=== PATIENT | male | born 1945 | race Caucasian/White ===

== ENCOUNTER → 2016-06-10 | Outpatient (CLI) | payer BC ==
[~2016-06-10] MED LIST: ALL300 PO; ASPI1TAB83 PO; CHOL1CAP57 PO; CYAN50TA2 PO; GLC/500 PO; LEVO75TA5 PO; LISI-461 PO; LOPELIQ6; MULT-610 PO; POTA540T PO; SILD50TA PO; SIMV20TA2 PO; [UNRECOGNIZED DRUG - OTHER] PO
[2016-06-10 12:47] LABS: ALT/SGPT 63 U/L (12-78); AST/SGOT 38 U/L (15-37); BLOOD UREA NITROGEN 25 mg/dl (7-18); BUN/CREATININE RATIO 22.6 (10-20); CARBON DIOXIDE 27 mmol/L (21-32); CHLORIDE 107 mmol/L (98-107); CHOLESTEROL 104 mg/dl (0-200); GLUCOSE 125 mg/dl (70-99); POTASSIUM 4.1 mmol/L (3.5-5.1); SODIUM 141 mmol/L (136-145)
[2016-06-10 12:50] LABS: ALB/GLOB RATIO 1.3 (0.9-2); ALKALINE PHOSPHATASE 57 U/L (45-117); HDL CHOLESTEROL 51 mg/dl; LDL CHOLESTEROL CALCULATED 24 mg/dl; TRIGLYCERIDES 143 mg/dl (0-150); VERY LOW DENSITY LIPOPROT CALC 29 mg/dl
[2016-06-10 13:03] LABS: CALCIUM 9.3 mg/dl (8.5-10.1); ESTIMATED AVERAGE GLUCOSE 154 mg/dl; HA1C FLAG Normal (Normal)
== END | disposition home or self-care (01) ==
LOC: C.LABBFT 08:14
PROVIDERS: ATTEND Internal Medicine
DX: E11.9 Type 2 diabetes mellitus without complications (principal); E78.00 Pure hypercholesterolemia, unspecified

== ENCOUNTER → 2016-07-08 | Outpatient (CLI) | payer BC ==
--- NOTE | 2016-07-08 08:23 | DIAGNOSTIC IMAGING REPORT ---
KUB CLINICAL HISTORY: N20.0 [id number] COMPARISON STUDY: 07/26/2015 FINDINGS: Unchanging right renal nephrocalcinosis. No significant left renal calcification. Bowel pattern is nonobstructive. IMPRESSION: Stable right renal nephrocalcinosis. No new or interval finding. Electronically signed by: Kraig Dobbins M.D. 07/08/2016 8:22 AM Dictated Date/Time: 07/08/2016 8:21 AM
== END | disposition home or self-care (01) ==
LOC: C.RAD 07:56
PROVIDERS: ATTEND Urology
DX: E83.59 Other disorders of calcium metabolism (principal); N29 Other disorders of kidney and ureter in diseases classified elsewhere; N40.1 Benign prostatic hyperplasia with lower urinary tract symptoms

== ENCOUNTER 2023-06-02 18:28 | Inpatient (IN) ==
--- NOTE | 2023-06-02 19:37 | Emergency Department Note ---
Impression & Plan Acute hyperkalemia, JOAQUÍN (acute kidney injury), Weakness, Metabolic acidosis ED Provider Note NAME: DARSHANA LIN AGE: 78 SEX: M : 1945 ARRIVES VIA: Walk-In INFORMANT: Patient ED PROVIDER(S): Clark Liu DO CHIEF COMPLAINT: hyperkalemia HPI: Patient is a 78-year-old male who presents to the ER with a past medical history of Alzheimer's, BPH, hyperlipidemia, hypertension and hypothyroidism for not feeling well for the past 2 to 3 days. He notes has been following a fair amount of tennis/pickleball. He feels very weak and rundown. He denies any headache or change in vision. No chest pain or shortness of breath. No nausea, vomiting, or diarrhea. No dysuria, urgency, or frequency. He has been eating less than usual. No urinary complaints. He had blood work done by his PCP and was referred in. ADDITIONAL HISTORY OBTAINED: Per HPI Chronic Medical/Social Conditions Affecting Care: Per HPI PAST MEDICAL HISTORY:See Below PAST SURGICAL HISTORY:See Below FAMILY HISTORY:See Below SOCIAL HISTORY:See Below HOME MEDICATIONS:See Below ALLERGIES:See Below VITALS:See Below PHYSICAL EXAMINATION: GENERAL: Sitting up in bed, alert, well appearing, well nourished, no distress, non-toxic EYE EXAM: normal conjunctiva. OROPHARYNX:mucous membranes are moist LUNGS: Clear to auscultation. Normal chest wall mechanics HEART: no murmurs, S1 normal and S2 normal ABDOMEN: abdomen soft, non-tender, normo-active bowel sounds, no masses, no rebound or guarding. UPPER EXTREMITIES: upper extremities are grossly normal. LOWER EXTREMITIES: No pitting edema. NEURO EXAM: Normal sensorium, cranial nerves II-XII grossly intact, normal speech, no gross weakness of arms, no gross weakness of legs. MEDICAL DECISION MAKING: Patient is a 78-year-old male who presents ER for above-stated complaint. IV was established blood work was obtained. Labs show leukocytosis of 13,000. No significant anemia. BMP with a creatinine 2.3 up from baseline of 1 with metabolic acidosis and a CO2 of 18. Potassium was elevated at 6.6. BUN was elevated at 79 likely secondary to the JOAQUÍN. CK mildly elevated at 300. UA with ketones. Patient was given IV fluids, insulin, glucose, IV calcium gluconate and bicarb for the hyperkalemia. Discussed the case with the hospitalist patient was admitted for the renal failure in combination with the hyperkalemia. Patient family expressed understanding. Discussed case with the hospitalist for further evaluation management treatment. Consults/Care Managements Discussions: Per [facility] Triage Nursing notes reviewed. Limited review of prior medical records performed Vital Signs: reviewed and remarkable for no significant abnormalities Differential diagnosis: Infection, dehydration, metabolic abnormality, hypo/hyperglycemia, electrolyte disturbance, anemia, hypoxia, cardiac sources, intracerebral event, toxicologic, neurologic, as well as other pathologies. ER treatment provided: See below Diagnostics interpreted by me include EKG and cardiac monitoring as listed below: -Cardiac Monitoring: An order was placed for continuous cardiac monitoring. The monitor shows a rate of 70 with sinus rhythm. -ECG: Sinus rhythm rate of 68 Normal axis No PVCs QTc 374 -Laboratory studies:Interpreted by me as stated above in MDM and shown below. Imaging studies: Xrays: As interpreted by me:none CTs show: none Procedures:none Critical Care: I have personally spent 35 minutes of critical care time in the direct management of this patient. This includes bedside care, interpretation of diagnostic studies, and testing, discussion with consultants, patient, and family members, and other required patient management activities. This 35 minutes is in excess of all separately billable procedures. Past Med/Surg History Medical History Degenerative disc disease Depression Diverticulitis DM type 2 (diabetes mellitus, type 2) Gout History of nephrolithiasis History of sleep apnea Hyperlipidemia Hypertension Hypothyroidism SDAT (senile dementia of Alzheimer's type) Surgical History History of appendectomy History of colonoscopy History of colostomy reversal History of esophagogastroduodenoscopy (EGD) History of nasal septoplasty History of open reduction and internal fixation (ORIF) procedure History of partial colectomy History of tonsillectomy History of tooth extraction Hx of left cataract extraction Family History Mother Family history of diabetes mellitus Skin cancer Father Myocardial infarction Denies family history of Ovarian cancer Prostate cancer Breast cancer Colorectal cancer Social History Smoking Status: Never smoker Tobacco Type: Cigars Age Started Using Tobacco: 69; Age Quit Using Tobacco: 74; Cigarettes Per Day: QUIT 09/2021; Second Hand Exposure: No; Do You Dip or Chew Tobacco: No; Hx Alcohol Use: Yes Alcohol type: beer Alcohol Intake Frequency: 2-4 x/Month Hx Substance Use: No Preferred Language: Congolese Communication Ability: Effective Visual Impairment: Limited Hearing Ability: Normal Passenger Agent Required: No Beliefs That Will Affect Care: None marital status: Current Living Situation: Spouse current occupational status: retired 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 Feels Safe at Home: Yes Childhood Exposure to Second-Hand Smoke: No Diet: regular caffeine: Yes during the past year weight has: remained stable Dental Care, Regularly: Yes Physical Activity Frequency: Daily Seatbelt Use: always Sunscreen Use: Yes Assistive Devices: Glasses Allergies Allergies Allergy/AdvReac Type Severity Reaction Status Date / Time lorazepam AdvReac Severe "VIOLENT" Verified 06/02/23 15:35 Home Meds Home Medications Medication Instructions Recorded Confirmed [id number]-[id number] 1 tab PO QAM 05/04/18 06/02/23 tablet loperamide 2 mg capsule (Imodium 2 mg PO BID PRN Diarrhea 05/04/18 06/02/23 A-D) [id number]-[id number] 300 mcg-K 60 1 tab PO QAM 05/04/18 06/02/23 mcg-lycop 600 mcg-lutein 300 mcg tablet (Centrum Silver Men) cholecalciferol (vitamin D3) 50 50 mcg PO QAM 06/12/20 06/02/23 mcg (2,000 unit) capsule apple cider vinegar 600 mg capsule 600 mg PO BID 10/17/20 06/02/23 lansoprazole 15 mg capsule,delayed 15 mg PO QAM 05/20/22 06/02/23 release allopurinol 300 mg tablet 300 mg PO HS 06/02/23 06/02/23 aspirin 81 mg tablet,delayed 81 mg PO HS 06/02/23 06/02/23 release ferrous sulfate 325 mg (65 mg 325 mg PO DAILY 06/02/23 06/02/23 iron) tablet Previous Rx's Medication Instructions Recorded tadalafil 20 mg tablet 20 mg PO DAILY PRN sexual activity 09/01/21 #6 tabs simvastatin 10 mg tablet 10 mg PO HS #90 tabs 05/01/23 dulaglutide 3 mg/0.5 mL 3 mg (0.5 mL) subcut .COMPLEX #6 mL 08/10/22 [facility] levothyroxine 75 mcg tablet 75 mcg PO QAM #90 tabs 08/10/22 potassium citrate 10 mEq (1,080 10 meq PO BID #180 tabs 08/10/22 mg) tablet,extended release donepezil 10 mg tablet 10 mg PO DAILY #90 tabs 09/08/22 blood sugar diagnostic (OneTouch #300 ea 11/06/22 Ultra Test strips) metformin 500 mg tablet,extended 1,000 mg (2 x 500 mg) PO BID #360 01/29/23 release 24 hr tabs lisinopril 10 mg tablet 10 mg PO QAM #90 tabs 04/19/23 Results & Data (ED) Vital Signs Vital Signs - 24 hr 06/02/23 18:31 06/02/23 18:48 06/02/23 20:07 Pulse Rate 85 75 Pulse Rate [Apical] 73 Pulse Rhythm Regular Pulse Rhythm [Apical] Regular Pulse Strength Normal Pulse Strength [Apical] Normal Respiratory Rate 20 16 Respiratory Effort / Characteristics Non-Labored Spontaneous Non-Labored Respiratory Depth Normal Normal Respiratory Pattern Regular Regular Blood Pressure 124/82 Blood Pressure [Right Arm] 111/67 Blood Pressure Mean 96 Blood Pressure Mean [Right Arm] 81 Blood Pressure Position Sitting Blood Pressure Position [Right Arm] Sitting Pulse Oximetry 100 96 Oxygen Delivery Method Room Air Room Air Sepsis Recent Fever Within 48 Hours No Sepsis New/Unexplained Change in Mental Status No Sepsis Action Taken by Nursing No Action Required Laboratory Data 06/02/23 Unknown 06/02/23 Unknown Lab Results 06/02/23 Range/Units 19:22 POC Hgb 14.3 (14.0-18.0) g/dl POC Hct 42 (42-52) % POC Sodium 137 (135-144) mmol/L POC Potassium 6.7 H* (3.3-5.0) mmol/L POC Chloride 108 (101-112) mmol/L POC Total CO2 19 L (24-31) mmol/L POC Anion Gap 17.0 (16-25) mmol/L POC BUN 77 H (7-18) mg/dl POC Creatinine 2.8 H (0.6-1.3) mg/dl POC Glucose (other) 132 H (70-99) mg/dl POC Ioniz Calcium Daljit 1.41 H (1.12-1.32) mmol/l Administered Medications Sodium Chloride (Nss) 1,000 mls @ 125 mls/hr IV .Q8H HASEEB Stop: 06/04/23 05:29 Last Admin: 06/02/23 22:47 Dose: 125 mls/hr Documented By: SUZANNE Discontinued Medications Dextrose (Dextrose 50% 50 Ml Syringe) 50 ml IV NOW STA Stop: 06/02/23 20:09 Last Admin: 06/02/23 20:32 Dose: 50 ml Documented By: SUZANNE Sodium Chloride (Nss) 1,000 mls @ 999 mls/hr IV .Q1H1M ONE Stop: 06/02/23 20:20 Last Infusion: 06/02/23 21:14 Dose: Infused Documented By: Admin: 06/02/23 20:09 Dose: 999 mls/hr Documented By: SUZANNE Calcium Gluconate () 1,000 mg in 60 mls @ 240 mls/hr IV NOW STA Stop: 06/02/23 19:51 Last Infusion: 06/02/23 20:31 Dose: Infused Documented By: Admin: 06/02/23 20:11 Dose: 240 mls/hr Documented By: SUZANNE Sodium Chloride (Nss) 1,000 mls @ 999 mls/hr IV .Q1H1M ONE Stop: 06/02/23 22:01 Last Infusion: 06/02/23 22:48 Dose: Infused Documented By: Admin: 06/02/23 21:44 Dose: 999 mls/hr Documented By: SUZANNE Insulin Human Regular (Novolin-R Insulin Per Unit Charge) 10 units IV NOW STA Stop: 06/02/23 20:09 Last Admin: 06/02/23 20:32 Dose: 10 units Documented By: SUZANNE Co-signed By: GARY Sodium Bicarbonate (Sodium Bicarb 8.4% Inj 50 Meq/50 Ml Syr) 50 meq IV NOW STA Stop: 06/02/23 19:38 Last Admin: 06/02/23 20:09 Dose: 50 meq Documented By: SUZANNE Discharge Plan Visit Data Chief Complaint: Abnormal Labs/Diagnostic Testing Stated Complaint: ABN BLOOD WORK, HIGH READINGS ED Provider: Clark Liu Discharge Problem: Acute hyperkalemia, JOAQUÍN (acute kidney injury), Weakness, Metabolic acidosis
[2023-06-02 19:45] LABS: iSTAT Creatinine 2.8 mg/dl (0.6-1.3); iSTAT Hemoglobin 14.3 g/dl (14.0-18.0); iSTAT Ionized Calcium 1.41 mmol/l (1.12-1.32); iSTAT Potassium 6.7 mmol/L (3.3-5.0)
[2023-06-02 19:51] LABS: Basophils # (auto) 0.06 K/uL (0.00-0.20); Basophils % (auto) 0.5 %; Eosinophils # (auto) 0.64 K/uL (0.00-0.50); Eosinophils % (auto) 4.9 %; Hematocrit (blood only) 43.3 % (42.0-52.0); Hemoglobin 14.2 g/dl (14.0-18.0); Immature Granulocytes # (auto) 0.08 K/uL (0.01-0.20); Immature Granulocytes % (auto) 0.6 %; Lymphocytes # (auto) 2.19 K/uL (1.20-3.40); Lymphocytes % (auto) 16.6 %; Mean Corpuscular Hemoglobin 30.5 pg (25.0-34.0); Mean Corpuscular Hgb Conc 32.8 g/dL (32.0-36.0); Mean Corpuscular Volume 92.9 fL (80.0-100.0); Mean Platelet Volume 10.1 fL (9.4-12.4); Monocytes # (auto) 1.74 K/uL (0.11-0.59); Monocytes % (auto) 13.2 %; Neutrophils # (auto) 8.48 K/uL (1.40-6.50); Neutrophils % (auto) 64.2 %; Platelet Count 261 K/uL (130-400); RDW Coefficient of Variation 13.6 % (11.5-14.5); RDW Standard Deviation 46.1 fL (36.4-46.3); Red Blood Count 4.66 M/uL (4.70-6.10); White Blood Count 13.19 K/ul (4.8-10.8)
[2023-06-02] MEDS: SODIUM BICARB 8.4% INJ 50 MEQ/50 ML SYR IV STA (20:09)
[2023-06-02] MEDS: SODIUM CHLORIDE 0.9% 1,000 ML IV ONE ×2 (20:09→21:44)
[2023-06-02] MEDS: CALCIUM GLUCONATE 1,000 MG/60 ML BAG IV STA (20:11)
[2023-06-02 20:12] LABS: Albumin Globulin Ratio 1.3 (0.9-2); Albumin Level 4.3 gm/dl (3.4-5.0); BUN Creatinine Ratio 33.8 (10-20); Bilirubin,Total 0.5 mg/dl (0.2-1.0); Calcium 10.5 mg/dl (8.6-10.3); Creatinine Clr Calc Pharmacy 25.6 ml/min; Est GFR (Non-African American) 25.9 ml/min; Globulin 3.3 gm/dl (2.5-4.0); Potassium 6.6 mmol/L (3.5-5.1); Total Protein 7.6 gm/dl (6.0-8.3)
[2023-06-02] MEDS: DEXTROSE 50% 50 ML SYRINGE IV STA (20:32)
[2023-06-02] MEDS: NovoLIN-R INSULIN PER UNIT CHARGE IV STA (20:32)
--- NOTE | 2023-06-02 20:43 | History & Physical Report ---
Date of Service June 02, 2023 Assessment & Plan (1) JOAQUÍN (acute kidney injury): Plan: JOAQUÍN likely resulting in decreased secretion of potassium and hyperkalemia. Etiology unclear. With exercise history, increase in BMs, and poor PO intake most likely pre-renal. US KUB to r/o obstructive etiology. UA and lytes ordered. Does take potassium supplementation - hold. Encourage PO intake. urine lytes pending UA pending avoid nephrotoxic agents US KUB ordered strict Is and Os - hold off on [place] for now as patient is completely oriented (2) Hyperkalemia: Plan: Given insulin 10 units x1. Given bicarb 50 mEq x1. EKG per my read does show some peaked T-waves. Was given calcium gluconate 1 g x1. Repeat BMP pending. BMP Q4H Admit to tele unit (3) Sleep apnea: Plan: Reportedly resolved and not on CPAP therapy. (4) Type 2 diabetes mellitus: Plan: Hold home meds. SSI while inpatient. Hold off on bolus dosing for now. (5) Hypercholesterolemia: Plan: Holding statin d/t CrCl < 30 (6) Hypertension: Plan: Holding antihypertensives in setting of JOAQUÍN (7) Hypothyroidism: Plan: Holding levothyroxine as med rec not done. Can restart home meds once rec is done. (8) Leukocytosis: Plan: Etiology unclear. AM CBC (9) Elevated CK: Plan: Downtrending. Repeat in the AM (10) Elevated lipase: Plan: No abdominal pain. Benign exam. AM lipids ordered. Repeat lipase with amylase in the AM. Plan Code status: full DVT ppx: Lovenox Q24H FENGI: Carb consistent, fluid resuscitated with 2L, then 125 mL/hr for maintenance x4 bags ordered Dispo: PCU/Tele History of Present Illness Primary Care Provider: Juanjose Dang MD 78 y/o male with a PMHx of total colectomy, gout, HTN, HLD, T2DM, and hypothyroidism presented after having abnormal labs outpatient. Patient with a history of total colectomy. Does have multiple loose stools daily, but these have been more frequent the last few days. He has also playing tennis and pickle ball several times a week. He mostly drinks diet green tea and minimal water. Does take potassium supplementation daily. He has also noticed some weakness in his legs which is what prompted his visit to his PCP today. Patient denies any lightheadedness/dizziness, headaches, CP, SOB, vomiting, abdominal pain, fevers, or chills. He did have some nausea the other day. Allergies Allergy/AdvReac Type Severity Reaction Status Date / Time lorazepam AdvReac Severe "VIOLENT" Verified 06/02/23 15:35 Home Medications Medication Instructions Recorded Confirmed Type ziptqgu-hvtdqsaiq-pmmnuz-zinc 1 tab PO QAM 05/04/18 06/02/23 History tablet loperamide 2 mg capsule (Imodium 2 mg PO BID PRN Diarrhea 05/04/18 06/02/23 History A-D) idgjsqdt-pj-awwvu 300 mcg-K 60 1 tab PO QAM 05/04/18 06/02/23 History mcg-lycop 600 mcg-lutein 300 mcg tablet (Centrum Silver Men) cholecalciferol (vitamin D3) 50 50 mcg PO QAM 06/12/20 06/02/23 History mcg (2,000 unit) capsule apple cider vinegar 600 mg capsule 600 mg PO BID 10/17/20 06/02/23 History tadalafil 20 mg tablet 20 mg PO DAILY PRN sexual activity 09/01/21 06/02/23 Rx #6 tabs lansoprazole 15 mg capsule,delayed 15 mg PO QAM 05/20/22 06/02/23 History release simvastatin 10 mg tablet 10 mg PO HS #90 tabs 06/15/22 06/02/23 Rx dulaglutide 3 mg/0.5 mL 3 mg (0.5 mL) subcut .COMPLEX #6 mL 08/10/22 06/02/23 Rx subcutaneous pen injector (Trulicity) levothyroxine 75 mcg tablet 75 mcg PO QAM #90 tabs 08/10/22 06/02/23 Rx potassium citrate 10 mEq (1,080 10 meq PO BID #180 tabs 08/10/22 06/02/23 Rx mg) tablet,extended release donepezil 10 mg tablet 10 mg PO DAILY #90 tabs 09/08/22 06/02/23 Rx blood sugar diagnostic (OneTouch #300 ea 11/06/22 06/02/23 Rx Ultra Test strips) metformin 500 mg tablet,extended 1,000 mg (2 x 500 mg) PO BID #360 01/29/23 06/02/23 Rx release 24 hr tabs lisinopril 10 mg tablet 10 mg PO QAM #90 tabs 04/19/23 06/02/23 Rx allopurinol 300 mg tablet 300 mg PO HS 06/02/23 06/02/23 History aspirin 81 mg tablet,delayed 81 mg PO HS 06/02/23 06/02/23 History release ferrous sulfate 325 mg (65 mg 325 mg PO DAILY 06/02/23 06/02/23 History iron) tablet Past Med/Surg History Medical History Degenerative disc disease Depression Diverticulitis DM type 2 (diabetes mellitus, type 2) Gout History of nephrolithiasis History of sleep apnea Hyperlipidemia Hypertension Hypothyroidism SDAT (senile dementia of Alzheimer's type) Surgical History History of appendectomy History of colonoscopy History of colostomy reversal History of esophagogastroduodenoscopy (EGD) History of nasal septoplasty History of open reduction and internal fixation (ORIF) procedure History of partial colectomy History of tonsillectomy History of tooth extraction Hx of left cataract extraction Family History Mother Family history of diabetes mellitus Skin cancer Father Myocardial infarction Denies family history of Ovarian cancer Prostate cancer Breast cancer Colorectal cancer Social History Smoking Status: Former smoker Tobacco Type: Cigars Age Started Using Tobacco: 69; Age Quit Using Tobacco: 74; Cigarettes Per Day: QUIT 09/2021; Second Hand Exposure: No; Do You Dip or Chew Tobacco: No; Hx Alcohol Use: No Hx Substance Use: No Preferred Language: Chinese Communication Ability: Effective Visual Impairment: Limited Hearing Ability: Normal Template Checker Required: No Beliefs That Will Affect Care: None marital status: Current Living Situation: Spouse current occupational status: retired 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 Feels Safe at Home: Yes Childhood Exposure to Second-Hand Smoke: No Diet: regular caffeine: Yes during the past year weight has: remained stable Dental Care, Regularly: Yes Physical Activity Frequency: Daily Seatbelt Use: always Sunscreen Use: Yes Assistive Devices: None Review of Systems 2 Review of Systems: See HPI Physical Exam 2 Physical Exam: Gen: well appearing patient in NAD HEENT: AT NC MMM Resp: CTAB no wheezing no increased work of breathing CV: RRR no m/r/g clinically well perfused, no edema or calf tenderness Abd: soft, non-tender, non-distended MSK: no obvious deformities Skin: no rashes or bruising Neuro: alert and oriented Psych: appropriate mood and affect Results & Data Results & Data Vital Signs (Past 12 Hours) Vital Signs Pulse Pulse Resp BP BP Pulse Ox O2 Del Method 06/02/23 20:07 73 16 111/67 96 Room Air 06/02/23 18:48 75 06/02/23 18:31 85 20 124/82 100 Room Air Laboratory Results 06/02/23 Unknown 06/02/23 Unknown Supervising Physician Co-Signing Physician Notes Attending addendum: I have physically seen this patient, have supervised the medical residents activities, and agree with the H&P unless as otherwise noted. Assessment and Plan: Acute kidney injury/hyperkalemia- Creatinine 2.34 upon admission, with base 1.04 Potassium 6.6 upon admission CK 298 and downtrending, likely mild element of rhabdo From the ED the patient received the following: Normal saline 1 L fluid bolus, calcium gluconate 1 g IV, sodium bicarbonate 50 mEq IV, and dextrose 50 followed by 10 units of regular insulin IV Follow-up BMP every 4 hours Hold lisinopril and KCl Continue normal saline at 100 mL/h Repeat dosings of dextrose and regular insulin as needed to get patient to target Where ultrasound of kidneys Admit to monitored bed Diabetes mellitus- Holding home medications: Metformin and dulaglutide Placed on SSI SDAT- Continue donepezil Remaining orders and notations as noted Resident Activity Tracking Resident Involvement: Resident Care Provided Care Provided: Adult Hospital Medicine (4) Type 2 diabetes mellitus Diabetes mellitus complication status: without complication Diabetes mellitus alf insulin use: without oysterman use Qualified Code(s): E11.9 - Type 2 diabetes mellitus without complications (6) Hypertension Hypertension type: essential hypertension Qualified Code(s): I10 - Essential (primary) hypertension (7) Hypothyroidism 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
[2023-06-02] MEDS: SODIUM CHLORIDE 0.9% 1,000 ML IV SCH (22:47)
[2023-06-02 23:10] LABS: Appearance Urine Clear (Clear); Bilirubin Urine Negative (Negative); Blood Urine Negative (Negative); Color Urine Dark Yellow; Glucose Urine UA Trace (Negative); Ketones Urine Trace (Negative); Leukocyte Esterase Urine Negative (Negative); Nitrite Urine Negative (Negative); Protein Urine Negative (Negative); Specific Gravity Urine 1.019 (1.000-1.030); Urobilinogen Urine Negative (Negative)
[2023-06-02 23:30] LABS: Calcium 9.4 mg/dl (8.6-10.3); Creatinine Clr Calc Pharmacy 31.7 ml/min; Est GFR (African American) 38.8 ml/min; Est GFR (Non-African American) 33.5 ml/min; Potassium 5.1 mmol/L (3.5-5.1)
--- NOTE | 2023-06-02 23:32 | Ultrasound Report ---
Exam(s): US RENAL EXAM: US Retroperitoneal Limited, Renal CLINICAL HISTORY: Reason for exam: r/o obstruction. TECHNIQUE: Real-time limited ultrasound of the retroperitoneum with image documentation. COMPARISON: KUB 02/18/23. FINDINGS: Right kidney: 10.6 cm in length. 5 mm echogenic focus in the lower pole, possible nonobstructing stones. No solid mass. No hydronephrosis. Left kidney: 10.8 cm in length. 12 mm echogenic focus lower pole, possible nonobstructing stones. No solid mass. No hydronephrosis. Bladder: No stone, debris or obvious wall thickening. IMPRESSION: 1. Suspect bilateral nonobstructing renal stones. 2. No hydronephrosis. Electronically signed by: Soha Blount M.D. 06/02/23 23:32 PM
[2023-06-02] MEDS ORDERED: DEXTROSE 50% 50 ML SYRINGE IV PRN (23:52)
[2023-06-02] MEDS ORDERED: ACETAMINOPHEN 325 MG TAB PO PRN (23:52)
[2023-06-02] MEDS ORDERED: CARBOHYDRATES FOR HYPOGLYCEMIA PO PRN (23:52)
[2023-06-02] MEDS ORDERED: GLUCAGON FOR INJ 1 MG VIAL SQ PRN (23:52)
[2023-06-02] MEDS ORDERED: GLUCOSE 10 TAB/TUBE PO PRN (23:52)
[2023-06-02] MEDS ORDERED: GLUCOSE 40% GEL 15 GM TUBE PO PRN (23:52)
[2023-06-03 04:13] LABS: Chol HDL Ratio 2.8 (0-5); Magnesium 1.5 mg/dl (1.7-2.4)
[2023-06-03 06:51] LABS: Hematocrit (blood only) 38.2 % (42.0-52.0); Hemoglobin 12.5 g/dl (14.0-18.0); Mean Corpuscular Hemoglobin 30.6 pg (25.0-34.0); Mean Corpuscular Hgb Conc 32.7 g/dL (32.0-36.0); Mean Corpuscular Volume 93.4 fL (80.0-100.0); Mean Platelet Volume 10.3 fL (9.4-12.4); Platelet Count 198 K/uL (130-400); RDW Coefficient of Variation 13.4 % (11.5-14.5); RDW Standard Deviation 45.6 fL (36.4-46.3); Red Blood Count 4.09 M/uL (4.70-6.10); White Blood Count 10.27 K/ul (4.8-10.8)
[2023-06-03 07:04] LABS: Estimated Average Glucose 137 mg/dl; Hemoglobin A1C 6.4 % (4.5-5.6)
[2023-06-03 08:40] LABS: Potassium 4.9 mmol/L (3.5-5.1)
[2023-06-03] MEDS: SODIUM POLYSTYRENE ENEMA PR STA (08:45)
--- NOTE | 2023-06-03 09:17 | Electrocardiogram Report ---
Test Reason : Blood Pressure : / mmHG Vent. Rate : 068 BPM Atrial Rate : 068 BPM P-R Int : 144 ms QRS Dur : 074 ms QT Int : 352 ms P-R-T Axes : 046 046 058 degrees QTc Int : 374 ms Normal sinus rhythm Normal ECG When compared with ECG of 06-MAY-2021 10:13, No significant change was found Confirmed by Juanjose Guerrier ([id number]) on 06/03/2023 9:16:46 AM Referred By: Gabi Nicole Confirmed By:Angel Guerrier
[2023-06-03] MEDS: INSULIN ASPART PER UNIT CHARGE SC SCH (10:47)
[2023-06-03] MEDS: MAGNESIUM SULFATE / D5W 1 GM/100 ML BAG IV SCH (11:18)
[2023-06-03] MEDS: SODIUM ZIRCONIUM CYCLOSILICATE 10 GM PACKET PO SCH (11:19)
--- NOTE | 2023-06-03 12:29 | Hospitalist Progress Note ---
Date of Service June 03, 2023 Assessment & Plan (1) Viral enteritis: Plan: Causing worsening of chronic diarrhea. No melena or hematochezia. Metamucil twice daily has been ordered (2) Volume depletion: Plan: Continue IV fluids (3) JOAQUÍN (acute kidney injury): Plan: Initial improvement of creatinine from 2.3 down to 1.8 but it elevated again to 2.3. Continue IV fluids (4) Acute hyperkalemia: Plan: Potassium 6.4 on admission. Now down to 4.9. Will continue treatment. Serial labs. Discontinue oral potassium supplement (5) Hypomagnesemia: Plan: Parenteral replacement. Serial labs Plan Hopefully home tomorrowJune 03 Admission and Anticipated Discharge Date Admission Date: June 02, 2023 Subjective Alert and oriented. No distress. is at the bedside. Potassium improved to 4.9. Will continue treatment with Kayexalate enema and oral Lokelma. Intravenous magnesium ordered. Will repeat potassium level later today. Home medications have been ordered. Serum osmolarity is elevated at 303 as expected. He will no longer take potassium citrate as this is causing problems. Metamucil twice daily added to help with chronic diarrhea. Creatinine initially improved from 2.3 down to 1.8 but is back up to 2.3. Continue IV fluids for now. Hopefully home tomorrowJune 03 Review of Systems 2 Review of Systems: Constitutional-no fever or chills ENT-no blurred vision, no double vision, no epistaxis, no sore throat Respiratory-no cough, no wheezing, no shortness of breath Cardiac-no palpitations, no chest pain, no syncope GI-no nausea, vomiting, melena, hematochezia. Chronic diarrhea has worsened over the past few days -no urinary retention, no urinary incontinence, no dysuria, no hematuria Musculoskeletal-no joint pain, no muscle tenderness Skin-no bruising, no rashes, no pruritus Neuro-no isolated weakness, no paresthesia, no weakness Psych-no depression, no anxiety Physical Exam 2 Physical Exam: General-alert and oriented x3, no fever, no chills HEENT-head atraumatic and normocephalic, pupils equal and reactive to light, extraocular muscles intact Neck-no lymphadenopathy or thyromegaly, trachea midline Chest-clear to auscultation. No rales, wheezing or rhonchi Cardiac-regular rate and rhythm, normal S1 and S2 Abdomen-normal bowel sounds, nontender, no hepatosplenomegaly Extremities-no cyanosis, clubbing, or edema Neuro-cranial nerves II through XII intact, motor and sensory function within normal limits, strength symmetrical, no focal deficits Psych-normal affect, normal mood Results & Data Results & Data Vital Signs (Past 12 Hours) Vital Signs Temp Pulse Pulse Resp BP BP Pulse Ox 06/03/23 12:13 36.5 C 60 16 124/72 99 06/03/23 12:13 64 06/03/23 11:00 108/62 06/03/23 11:00 64 23 100 06/03/23 10:08 98 06/03/23 08:00 57 L 15 99 06/03/23 08:00 105/58 L 06/03/23 07:55 06/03/23 07:15 67 06/03/23 07:00 115/68 06/03/23 07:00 63 22 98 06/03/23 06:45 68 17 114/97 94 06/03/23 06:00 114/57 L 06/03/23 06:00 61 22 98 06/03/23 05:00 65 20 98 06/03/23 05:00 111/60 06/03/23 04:00 61 18 122/66 99 06/03/23 03:00 78 17 121/57 L 99 06/03/23 02:00 76 19 91/53 L 98 06/03/23 01:14 70 19 118/67 99 06/03/23 00:32 63 16 121/56 L 97 Pulse Ox O2 Del Method O2 Del Method 06/03/23 12:13 Room Air 06/03/23 12:13 06/03/23 11:00 06/03/23 11:00 06/03/23 10:08 06/03/23 08:00 06/03/23 08:00 06/03/23 07:55 94 Room Air 06/03/23 07:15 06/03/23 07:00 06/03/23 07:00 06/03/23 06:45 Room Air 06/03/23 06:00 06/03/23 06:00 06/03/23 05:00 06/03/23 05:00 06/03/23 04:00 Room Air 06/03/23 03:00 Room Air 06/03/23 02:00 Room Air 06/03/23 01:14 Room Air 06/03/23 00:32 Room Air Laboratory Results 06/03/23 03:21 06/03/23 03:21 PG Care Time/CCT Total # of Minutes Spent Total Time Spent with Patient: Total time spent is greater than 50% in coordination of care (as documented) at patient's floor/unit and/or counseling patient: Coding Level of Care Code 26048 SUB INP/OBS CARE 3/50MIN Diagnoses Viral enteritis A08.4 Volume depletion E86.9 JOAQUÍN (acute kidney injury) N17.9 Acute hyperkalemia E87.5 Hypomagnesemia E83.42
[2023-06-03] MEDS: PSYLLIUM or GUAR GUM FIBER 4GM PACKET PO SCH (12:59)
[2023-06-03] MEDS: ASPIRIN 81 MG ECTAB PO SCH (13:14)
[2023-06-03] MEDS: CHOLECALCIFEROL 125 MCG (5,000 UNITS) TAB PO SCH (13:14)
[2023-06-03] MEDS: DONEPEZIL HCL 10 MG TAB PO SCH (13:14)
[2023-06-03] MEDS: metFORMIN HCL ER 500 MG TABCR PO SCH (17:10)
[2023-06-03] MEDS: allopurinoL 300 MG TAB PO SCH (21:22)
[2023-06-03] MEDS: SIMVASTATIN 10 MG TAB PO SCH (21:22)
--- NOTE | 2023-06-04 01:46 | Billing Data ---
Date of Service June 04, 2023 Coding Level of Care Code 74274 INT INP/OBS CARE
[2023-06-04] MEDS: ENOXAPARIN INJ 30 MG/0.3 ML SYR SQ SCH (05:44)
[2023-06-04 06:59] LABS: Hematocrit (blood only) 35.7 % (42.0-52.0); Hemoglobin 11.8 g/dl (14.0-18.0); Mean Corpuscular Hemoglobin 30.4 pg (25.0-34.0); Mean Corpuscular Hgb Conc 33.1 g/dL (32.0-36.0); Mean Platelet Volume 10.2 fL (9.4-12.4); Platelet Count 173 K/uL (130-400); RDW Coefficient of Variation 13.5 % (11.5-14.5); RDW Standard Deviation 45.1 fL (36.4-46.3); Red Blood Count 3.88 M/uL (4.70-6.10); White Blood Count 7.64 K/ul (4.8-10.8)
[2023-06-04 07:28] LABS: BUN Creatinine Ratio 22.4 (10-20); Calcium 8.5 mg/dl (8.6-10.3); Creatinine Clr Calc Pharmacy 55.9 ml/min; Est GFR (African American) 77.2 ml/min; Est GFR (Non-African American) 66.6 ml/min; Magnesium 1.4 mg/dl (1.7-2.4); Potassium 4.2 mmol/L (3.5-5.1)
[2023-06-04] MEDS: MAGNESIUM SULFATE / D5W 1 GM/100 ML BAG IV ONE (10:15)
[2023-06-04] MEDS: MAGNESIUM OXIDE 400 MG TAB PO SCH (10:19)
--- NOTE | 2023-06-04 11:00 | Discharge Summary ---
Date of Service June 04, 2023 Admission HPI Per Admitting Provider 78 y/o male with a PMHx of total colectomy, gout, HTN, HLD, T2DM, and hypothyroidism presented after having abnormal labs outpatient. Patient with a history of total colectomy. Does have multiple loose stools daily, but these have been more frequent the last few days. He has also playing tennis and pickle ball several times a week. He mostly drinks diet green tea and minimal water. Does take potassium supplementation daily. He has also noticed some weakness in his legs which is what prompted his visit to his PCP today. Patient denies any lightheadedness/dizziness, headaches, CP, SOB, vomiting, abdominal pain, fevers, or chills. He did have some nausea the other day. Principal Diagnosis Acute kidney injury, hyperkalemia, hypomagnesemia, mildly elevated creatinine kinase without overt rhabdomyolysis Discharge Exam General-alert and oriented x3, no fever, no chills HEENT-head atraumatic and normocephalic, pupils equal and reactive to light, extraocular muscles intact Neck-no lymphadenopathy or thyromegaly, trachea midline Chest-clear to auscultation. No rales, wheezing or rhonchi Cardiac-regular rate and rhythm, normal S1 and S2 Abdomen-normal bowel sounds, nontender, no hepatosplenomegaly Extremities-no cyanosis, clubbing, or edema Neuro-cranial nerves II through XII intact, motor and sensory function within normal limits, strength symmetrical, no focal deficits Psych-normal affect, normal mood Discharge Data Allergies Allergy/AdvReac Type Severity Reaction Status Date / Time lorazepam AdvReac Severe "VIOLENT" Verified 06/02/23 15:35 Consultations 06/02/23 20:46 ED Decision to Admit Stat Ordered Studies 06/02/23 21:19 US Kidney Bladder [US renal/blad retro comp] Urgent Hospital Course (1) Viral enteritis: Causing worsening of chronic diarrhea. No melena or hematochezia. Metamucil twice daily has helped. He can continue this at discharge. (2) Volume depletion: Resolved with IV fluids (3) JOAQUÍN (acute kidney injury): Resolved with IV fluids. Creatinine 1.0 today, June 03 (4) Acute hyperkalemia: Potassium 6.4 on admission. Treated with Kayexalate enema and Lokelma. Potassium is 4.2 today, Kati 19. He will no longer take potassium citrate (5) Hypomagnesemia: Continue oral and parenteral replacement while hospitalized. Home on oral magnesium oxide. Serial labs Plan Home todayJune 03 Total Time Total Time Spent Total Time Spent (In Minutes): 45-minute Discharge Plan Discharge Items Patient Disposition: Home - Self-Care Reason For Visit: HYPERKALEMIA Discharge Diagnosis: Acute kidney injury, hyperkalemia, hypomagnesemia, elevated CK without overt rhabdomyolysis Activity: Resume your previous activity Call non-emergency contact if: you have any medication questions Follow-up/Referrals: Juanjose Dang MD [Primary Care Provider] - Diet: Carb Consistent or DM2 Addtl Attending Provider Instructions: Stop potassium citrate supplement. Take magnesium oxide to maintain satisfactory magnesium levels. All other medications remain the same. Take Metamucil twice a day to lessen frequency and severity of loose stools Pending Studies at Discharge: No Stand-Alone Forms: [facility] [employer], Smoking Cessation Medications and DC Order Prescriptions: New magnesium oxide 400 mg (241.3 mg magnesium) Tablet 400 mg PO BID Qty: 60 0RF Continued simvastatin 10 mg tablet 10 mg PO HS Qty: 90 3RF levothyroxine 75 mcg tablet 75 mcg PO QAM Qty: 90 3RF Trulicity 3 mg/0.5 mL pen injector 3 mg subcut .COMPLEX Qty: 6 3RF Rx Instructions: 3 mg subcut once weekly; (DME) OneTouch Ultra Test Strip See Rx Instructions .Route Qty: 300 3RF Rx Instructions: test blood sugar TID metformin 500 mg tablet extended release 24 hr 1,000 mg PO BID Qty: 360 1RF Rx Instructions: Take with meals. lisinopril 10 mg tablet 10 mg PO QAM Qty: 90 3RF cholecalciferol (vitamin D3) 50 mcg (2,000 unit) capsule 50 mcg PO QAM donepezil 10 mg tablet 10 mg PO DAILY Qty: 90 3RF apple cider vinegar 600 mg capsule 600 mg PO BID tadalafil 20 mg tablet 20 mg PO DAILY PRN (Reason: sexual activity) Qty: 6 6RF Rx Instructions: administer approximately 30min before sexual activity; do not use more than 1 dose per 24hrs ferrous sulfate 325 mg (65 mg iron) tablet 325 mg PO DAILY loperamide [Imodium A-D] 2 mg Capsule 2 mg PO BID PRN (Reason: Diarrhea) [id number] Tablet 1 tab PO QAM Centrum Silver Men 300-600-300 mcg Tablet 1 tab PO QAM lansoprazole 15 mg capsule,delayed release(DR/EC) 15 mg PO QAM allopurinol 300 mg tablet 300 mg PO HS aspirin [Aspirin Low-Strength] 81 mg Tablet,Delayed Release (Dr/Ec) 81 mg PO HS Discontinued potassium citrate 10 mEq (1,080 mg) tablet extended release 10 meq PO BID Qty: 180 3RF Discharge Orders: Discharge Order (Routine); Ordered 06/04/23 Ordered By: Jean-Pierre Garcia/Other Patient Handouts: Managing Type 2 Diabetes Admission Data Admit Date/Time: 06/02/23 21:13 Attending Provider: Jean-Pierre Villela Admit Provider: Brielle Lazcano Primary Care Provider: Juanjose Dang Other Providers: Casimiro Cedeno Coding Level of Care Code 53567 INP/OBS DISCH >30 MIN Diagnoses Viral enteritis A08.4 Volume depletion E86.9 JOAQUÍN (acute kidney injury) N17.9 Acute hyperkalemia E87.5 Hypomagnesemia E83.42
== END 2023-06-04 12:44 | disposition home or self-care (01) | DRG 684 ==
LOC: ED 18:28 → SUATTDRO 21:13 → EDINP 21:13 → 2S 06-03 11:34